=== PATIENT | male | born 1975 | race Caucasian/White ===

== ENCOUNTER 2016-11-20 16:35 | Emergency (ER) | payer SELFPAY ==
[~2016-11-20] VITALS: Wt 100.0 kg
[2016-11-20] MEDS ORDERED: DOCU-144 PO (19:41)
[2016-11-20] MEDS ORDERED: NAPR-260 PO (19:41)
--- NOTE | 2016-11-20 19:48 | ERD ---
ER Documentation Chief Complaint Date/Time DATE: 11/20/16 TIME: 19:42 Chief Complaint RECTAL BLEEDING FROM HEMRRHOIDS FOR THE PAST 2 DAYS. NO AP . RECTAL PAIN HPI 41-year-old male comes in with rectal bleeding from hemorrhoids that he has had for 2 days. No fevers or chills. ROS All systems reviewed and are negative except as per history of present illness. Medications Home Meds Active Scripts Lidocaine (Lmx 5) 30 Gm Cream.gm., 30 GM TP BID, #1 Prov:HENRI MATT PA-C 11/20/16 Hydrocortisone* Rectal (Preparation H* Cream) 1% - 26 Gm Cream.gm., 1 APPLIC MA BID, #1 TUB Prov:HENRI MATT PA-C 11/20/16 Tramadol HCl (Tramadol HCl) 50 Mg Tablet, 50 MG PO Q4 Y for PAIN, #20 TAB Prov:HENRI MATT PA-C 11/20/16 Naproxen* (Naprosyn*) 500 Mg Tablet, 500 MG PO BID Y for PAIN AND/OR INFLAMMATION, #30 TAB Prov:HENRI MATT PA-C 11/20/16 Docusate Sodium* (Colace*) 100 Mg Capsule, 100 MG PO TID, #60 CAP Prov:HENRI MATT PA-C 11/20/16 PMhx/Soc Medical and Surgical Hx: pt denies Surgical Hx Hx Miscellaneous Medical Probl: Yes (Hemarrhoids x 2 years) Hx Alcohol Use: No Hx Substance Use: No Hx Tobacco Use: Yes (1ppd) Smoking Status: Current every day smoker Physical Exam Vitals Vital Signs Date Time Temp Pulse Resp B/P Pulse Ox O2 Delivery O2 Flow Rate FiO2 11/20/16 16:50 97.1 94 20 111/76 98 Physical Exam General: Well-developed, well-nourished. The patient appears in no acute distress. HEENT: Head is normocephalic, atraumatic. No scleral icterus. Neck: Supple. Nontender. Lungs: Clear to auscultation. Normal air movement. Heart: Regular rate and rhythm. S1 and S2 are normal. No murmurs, gallops, or rubs. Abdomen: Nondistended. Rectum: At the 6 o'clock position there is a 1.5 cm thrombosed hemorrhoid. There is a total of 5 hemorrhoids, the largest is approximately 2 cm, followed by 1.5 cm, another 1 cm and another half centimeter. The one at the 12 o'clock position is nontender, 4 out of 5 are tender to palpation. Extremities: No clubbing or cyanosis. Moving extremities x 4. No weakness. Neurologic: Alert and oriented 3. No focal deficits. Normal speech and gait. Skin: Normal turgor. No rash or lesions. Results 24 hrs Current Medications Medications (Trade) Dose Ordered Sig/Mariah Route PRN Reason Start Time Stop Time Status Last Admin Dose Admin Lidocaine (Xylocaine 1% (Mdv) 20 ml) 20 ml ONCE ONCE SC 11/20/16 20:00 11/20/16 20:01 DC Acetaminophen/ Hydrocodone Bitart ([place] (5/325)) 1 tab ONCE ONCE PO 11/20/16 20:00 11/20/16 20:01 DC 11/20/16 20:01 Procedures/MDM Thrombosed hemorrhoid incision and Drainage with irrigation by me: Patient was verbally consented Location: External hemorrhoid Anesthesia: Local 1% Lidocaine 4, 1 cc each Technique: Superficial incision was made, I took a hemostat and bluntly dissected each hemorrhoid, I removed the clots. Packing: None Complications: Neurovascularly intact post procedure 48 hour wound check. Scar minimization instructions given. ED Ultrasound: Abscess localized by me using concurrent ultrasound guidance and assessment of the anatomy. Real time image archived in the medical record confirms anatomy. Patient's skin symptoms have stabilized while they have been evaluated in the department and are appropriate for outpatient care and work up. Exam and w/u not consistent w/ sepsis, deep space infection, or foreign body. 41-year-old male comes with multiple external hemorrhoids, there was one no thrombus, small amount of clot was able to limit position. He is to follow-up with colorectal surgeon for surgical evaluation and removal. Departure Diagnosis: Primary Impression: External hemorrhoid, thrombosed Condition: Good Patient Instructions: Thrombosed Hemorrhoids Additional Instructions: Colorectal CSPECIALIST: YOU HAVE A MEDICAL CONDITION WHICH REQUIRES YOU TO SEE A SPECIALIST WITHIN THE NEXT 1 WEEK. PLEASE FOLLOW UP WITH YOUR PRIMARY PHYSICIAN FOR REFFERAL.IF YOU DO NOT HAVE A PRIMARY CARE PHYSICIAN AND/OR YOU CAN NOT AFFORD TO SEE A PHYSICIAN THE FOLLOWING RESOURCES HAVE BEEN SUPPLIED TO YOU. IT IS YOUR RESPONSIBILITY TO BE SEEN BY THE SPECIALIST HENRI MATT PA-C Nov 20, 2016 19:48
[2016-11-20] MEDS ORDERED: HYDROCODONE/APAP (5/325) TAB PO ONE (20:00)
[2016-11-20] MEDS ORDERED: LIDOCAINE 1% (MDV) 20 ML INJ SC ONE (20:00)
[2016-11-20] MEDS ORDERED: TRAM50TA2 PO (20:15)
[2016-11-20] MEDS ORDERED: HYDR26CR PR (20:15)
[2016-11-20] MEDS ORDERED: LIDO30CR3 TP (20:15)
[2016-11-20 20:27] VITALS: BP 126/85; PULSE 82; RESP 16
== END 2016-11-20 20:42 | disposition home or self-care (01) ==
LOC: FTE 16:35
DX: K64.4 Residual hemorrhoidal skin tags (principal); F17.210 Nicotine dependence, cigarettes, uncomplicated